=== PATIENT | male | born 1970 | race Caucasian/White ===

== ENCOUNTER 2020-12-26 15:03 | Emergency (ER) | payer OTHER, MEDICARE, MEDICAID ==
[~2020-12-26] VITALS: Ht 182.9 cm; Wt 73.0 kg
--- NOTE | 2020-12-26 15:13 | NUR ---
LATE ENTRY DUE TO PATIENT CARE: BIB EMS WITH CHIEF C/O DIZZINESS. PATIENT'S BLOOD GLUCOSE WHEN EMS ARRIVED WAS 58, PATIENT GIVEN ORAL GLUCOSE AND D25 ON SCENE. LAST BLOOD GLUCOSE 97. 20 GAUGE IV STARTED LEFT AC, 500 CC NS BOLUS GIVEN EN ROUTE. PATIENT REPORTS HE IS FEELING MUCH BETTER, NO LONGER FEELING DIZZY. STATES "MAYBE IT'S BECAUSE I DIDN'T EAT LUNCH." CONNECTED TO MONITOR, VSS, CALL LIGHT WITHIN REACH.
--- NOTE | 2020-12-26 16:03 | NUR ---
PATIENT SITTING IN TERRELL BACK, CONNECTED TO MONITOR, VSS, CALL LIGHT WITHIN REACH. WAITING FOR LABS.
[2020-12-26 16:06] LABS: BASOPHILS % (AUTO) 1 % (0-1); EOSINOPHILS % (AUTO) 0 % (1-7); LYMPHOCYTES % (AUTO) 22 % (22-44); MEAN CORPUSCULAR HEMOGLOBIN 29.2 pg (27.5-34.5); MEAN CORPUSCULAR HGB CONC 33.8 g/dL (33.2-36.2); MEAN PLATELET VOLUME 8.6 fL (7.4-10.4); MONOCYTES % (AUTO) 5 % (2-9); NEUTROPHILS % (AUTO) 72 % (42-75); PLATELET COUNT 182 x10^3/uL (130-400)
[2020-12-26 16:12] LABS: ALBUMIN 3.4 g/dL (3.4-5.0); ANION GAP 4 mmol/L (5-15); CALCIUM 8.3 mg/dL (8.5-10.1); CHLORIDE 109 mmol/L (98-107); CREATININE 0.88 mg/dL (0.7-1.3)
--- NOTE | 2020-12-26 17:02 | NUR ---
ERMD AT BEDSIDE FOR EVALUATION.
[2020-12-26 17:25] VITALS: BP 99/64
--- NOTE | 2020-12-26 17:32 | NUR ---
PO CHALLENGE (QUITE A FEW SNACKS) AND ROAD TEST UNREMARKBLE. DISCHARGED HOME
== END 2020-12-26 17:33 | disposition home or self-care (01) ==
LOC: ED 17:25
DX: R42 Dizziness and giddiness (principal); G43.909 Migraine, unspecified, not intractable, without status migrainosus; J45.909 Unspecified asthma, uncomplicated
CPT/HCPCS: 36415; 80048; 82040; 85025; 93005; 99284